=== PATIENT | female | born 2000 | race Hispanic/Latino ===

== ENCOUNTER 2025-05-26 10:26 | Emergency (ER) | payer BC ==
[~2025-05-26] VITALS: Ht 157.5 cm; Wt 67.6 kg
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
--- NOTE | 2025-05-26 10:47 | NUR ---
PATIENT IN ROOM
[2025-05-26 11:08] LABS: SARS-CoV-2, RNA, NAAT NEGATIVE SARS CoV-2 (NEGATIVE)
[2025-05-26 11:10] LABS: INFLUENZA TYPE A Negative For Type A (NEGATIVE); INFLUENZA TYPE B Negative For Type B (NEGATIVE)
[2025-05-26 11:27] LABS: AMPHET/METH SCREEN,URINE NEGATIVE (NEGATIVE); BARBITURATE SCREEN, URINE NEGATIVE (NEGATIVE); CANNABINOID SCREEN,URINE POSITIVE (NEGATIVE); COCAINE SCREEN,URINE NEGATIVE (NEGATIVE)
[2025-05-26] MEDS: 0.9%NACL 1000ML 1,000 ML IV ONE (11:53)
--- NOTE | 2025-05-26 11:53 | NUR ---
PER PATIENT, SHE IS REFUSING ZOFRAN, REGLAN, AND BENADRYL. PT WAS EDUCATED ON THE INTENT OF THE MEDICATIONS, SHE VERBALIZED UNDERSTANDING. PT STATED " I WOULD RATHER TAKE A TEA". 

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
[2025-05-26 13:36] VITALS: BP 130/85; PULSE 98; RESP 16; TEMP 98.2; O2SAT 100
== END 2025-05-26 13:34 | disposition home or self-care (01) ==
LOC: EDH 10:26
DX: R51.9 Headache, unspecified (principal); Z79.899 Other long term (current) drug therapy; Z20.822 Contact with and (suspected) exposure to COVID-19
CPT/HCPCS: 99284; 96360; 70450; 87635; 96361; 80305; 87804 ×2; 81025; J7030; 99283; J1200; J2405; J2765